=== PATIENT | male | born 2000 | race Caucasian/White ===

== ENCOUNTER 2022-10-23 12:37 | Emergency (ER) | payer BC, OTHER ==
--- OUTSIDE RECORDS SUMMARY | 2022-10-23 12:39 | XMS REPORT | Continuity of Care Document ---
:2000 Author Organization [facility] t Address [address] [place] [address] Care Team Providers Name Role Phone Ramon Aals Primary Care Physician Michael Werner Attending Clinician MICHAEL BROOKS Attending Clinician Unavailable Julisa Johnson MD Attending Clinician JULISA JOHNSON Attending Clinician Unavailable 1, [facility] Attending Clinician Unavailable Sarah Ríos MD Attending Clinician SARAH RÍOS Attending Clinician Unavailable Po, [facility] Main Attending Clinician Unavailable JULISA JOHNSON Admitting Clinician Unavailable Julisa Johnson MD Admitting Clinician Payers Payer Name Policy Type Policy Number Effective Date Expiration Date S ource Problems Condition Condition Condition Status Onset Resolution Last Treating Co mments Source Name Details Category Date Date Treatment Clinician Date Morbid Morbid Disease Active Univers obesity obesity 3-07 [place] mass index 00 [place] dical of of Branch 40.0-49.9 40.0-49.9 Internal Internal Disease Active Overview: Un vel derangemen derangemen 3-01 Formatt[place] ity of t of left t of left 00:00: [place] of this [place] knee knee 00 note Medical involving involving might be Br anch anterior anterior different horn of horn of from the medial medial original. meniscus meniscus Added automatic ally from request for surgery [id number] Wound Wound Disease Active Univers infection infection 05-30 ity of 00:00: [place] 00 Medical Branch Skin Skin Disease Active Univers eschar eschar 05-30 ity of 00:00: [place] 00 Medical [facility] Allergies, Adverse Reactions, Alerts Allergy Allergy Status Severity Reaction(s) Onset Inactive Treating Comm ents Source Name Type Date Date Clinician [place] Active Diarrhea C.diff Univ ers efrem ty to 05-30 ity of adverse 00:00: [place] reaction 00 Medical s Branch Social History Social Habit Start Date Stop Date Quantity Comments Source Exposure to Not sure [facility] SARS-CoV-2 [facility] (event) [place] Alcohol intake 2022-01-11 2022-01-11 Lifetime University of 00:00:00 00:00:00 non-drinker [facility] (finding) [place] Tobacco Comment 2021-12-25 2021-12-25 vape Universit y of 00:00:00 00:00:00 [facility] Tobacco use and 2021-12-22 2021-12-22 Current user Univers ity of exposure 00:00:00 00:00:00 [facility] Sex Assigned At [birth year] Universit y of 00:00:00 00:00:00 [facility] Smoking Status Start Date Stop Date Source Never smoker [facility] Medications Ordered Filled Start Stop Current Ordering Indication Dosage Frequency Signature Comments Components Source Medication Medication Date Date Medication? Clinician (SIG) Name Name aspirin 325 2021- No [id number] 325mg Take 1 Univers mg tablet 12-28 tablet by ity of 00:00: 04:59 mouth 2 [place] 00 :00 (two) Medical times Branch daily with meals for 28 days. aspirin 325 2021- No [id number] 325mg Take 1 Univers mg tablet 12-28-05 tablet by ity of 00:00: 04:59 mouth 2 [place] 00 :00 (two) Medical times Branch daily with meals for 28 days. diclofenac Yes 75mg Take 1 Unive rs 75 mg EC 11-26 tablet by ity of tablet 00:00: mouth 2 [place] 00 (two) [facility] daily with meals. diclofenac 2021- Yes 75mg Take 1 Unive rs 75 mg EC 2-03 tablet by ity of tablet 00:00: mouth 2 (two) [facility] daily with meals. Vital Signs Vital Name Observation Time Observation Value Comments Source Systolic blood 2022-01-11 18:45:00 143 mm[Hg] Univer sity of [facility] Diastolic blood 2022-01-11 18:45:00 93 mm[Hg] Unive rsity of [facility] Heart rate 2022-01-11 18:45:00 78 /min [facility] Body height 2022-01-11 18:40:00 188 cm [facility] Body weight 2022-01-11 18:40:00 148.326 kg [facility] BMI 2022-01-11 18:40:00 41.98 kg/m2 [facility] Procedures This patient has no known procedures. Encounters Start End Encounter Admission Attending Care Care Encounter Source Date/Time Date/Time Type Type Clinicians Facility Department ID 2022-01-11 2022-01-11 Office Satnam [facility] [id number] Univers 13:45:00 14:03:08 Visit [facility] [id number] it y of [place] [id number] Sagar as LEANDRA?BLEA [id number] [address] [facility] 2022-01-11 2022-01-11 Outpatient R SATNAM [facility] [id number] Univers 13:45:00 13:45:00 MICHAEL [facility] [place] 2022-01-11 2022-01-11 Letter Satnam WYJELENA [id number] Univers 00:00:00 00:00:00 (Out) [facility] [id number] it y of [place] [id number] Sagar as LEANDRA?BLEA [id number] Ct [address] MEDICAL OFFICE BUILDING 2022-01-11 2022-01-11 [facility] [id number] Univers 00:00:00 00:00:00 (Out) Michael Anne HEALTH [id number] it y of [place] [id number] Sagar as LEANDRA?BLEA [id number] Ct niki KATZ 198 [place] [facility] 2021-12-28 2021-12-28 Surgery [facility] [id number] Univers 14:45:00 16:17:00 Julisa MERIDA [id number] i ty of [place].2.[place].2.686 [place] [id number] [facility] 020 [place] 2021-12-28 2021-12-28 [facility] SOR [id number] Univers 11:51:00 16:01:00 JULISA elrita [facility] 2021-12-28 2021-12-28 Hospital [facility] [id number] Univers 11:51:00 16:01:00 Encounter Julisa Komal MAGNOLIA [id number] ity of [place] 4.2.[place].2.686 [place] [id number] [facility] 071 [place] 2021-12-25 2021-12-25 Enrollment Counselor 1, Adc Lab [facility] [id number] Univers 09:30:00 09:45:00 Visit Sarah Ríos MAGNOLIA [id number] ity of [facility] 4.2.7.2.686 [place] [facility] [id number] [facility] 353 [place] 2021-12-25 2021-12-25 [facility] [id number] Univers 09:30:00 09:30:00 SARAH alvarez [facility] 2021-12-23 2021-12-23 Telephone [facility] [id number] Univers 00:00:00 00:00:00 Julisa Sauceda HEALTH [id number] it y of [place] 4.2.7.2.686 Sagar as LEANDRA?BLEA [id number] Ct niki KATZ 198 [facility] 2021-12-22 2021-12-22 Enrollment Counselor Vitaly, Adc Lab Main [facility] [id number] Univers 15:30:00 15:45:00 Visit Julisa Johnson [id number] ity of [facility] [id number] [place] E[place] [phone] Me dical NAL 353 [facility] 2021-12-22 2021-12-22 [facility] [id number] Univers 15:30:00 15:30:00 JULISA [facility] [place] 2021-12-22 2021-12-22 Office [facility] [id number] Univers 14:45:00 15:00:00 Visit Michael S HEALTH [id number] it y of [place] 4.2.7.2.686 [place] as LEANDRA?BLEA [id number] Ct diczoey KATZ 198 [facility] 2021-12-22 2021-12-22 Outpatient [facility] [id number] Univers 14:45:00 14:45:00 [facility] 2021-12-22 2021-12-22 [facility] [id number] Univers 00:00:00 00:00:00 Surgery Julisa Sauceda HEALTH [id number] it y of [place] [id number] [place] as LEANDRA?BLEA [id number] Ct dical GIANNA 198 [facility] 2021-12-22 2021-12-22 Letter [facility] [id number] Univers 00:00:00 00:00:00 (Out) Michael S HEALTH 350.1.13.10 it y of [place] 4.2.7.2.686 Sagar as LEANDRA?BLEA [phone] Ct dical GIANNA 198 [facility] 2021-12-21 2021-12-21 Telephone [facility] [id number] Univers 00:00:00 00:00:00 Michael S HEALTH 350.1.13.10 it y of [place] 4.2.7.2.686 Sagar as LEANDRA?BLEA [id number] Me niki KATZ 198 [facility] 2021-12-18 2021-12-18 Telephone [facility] [id number] Univers 00:00:00 00:00:00 Michael S HEALTH 350.1.13.10 it y of [place] 4.2.7.2.686 Sagar as LEANDRA?BLEA [id number] Ct niki KATZ 198 [facility] 2021-11-26 2021-11-26 [place] [facility] [id number] Univers 00:00:00 00:00:00 Michael S HEALTH 350.1.13.10 it y of [place] 4.2.7.2.686 Sagar as LEANDRA?BLEA [phone] Ct niki KATZ [address] [place] [address] 2021-11-25 2021-11-25 [facility] [id number] Univers 00:00:00 00:00:00 Michael S HEALTH 350.1.13.10 it y of [place] [id number] Sagar as LEANDRA?BLEA [id number] Ct niki KATZ [address] [place] [address] 2021-11-19 2021-11-19 Outpatient [facility] [id number] [facility] 10:15:00 12:38:57 [facility] 2021-11-19 2021-11-19 Office [facility] [id number] Univers 10:15:00 10:30:00 Visit [facility] HEALTH [id number] it y of [place] [id number] [place]agar as LEANDRA?BLEA [id number] Ct niki KATZ [address] [place] [address] [facility] 2021-11-19 2021-11-19 Outpatient [facility] [id number] Univers 10:15:00 10:15:00 [facility] Results This patient has no known results.
--- NOTE | 2022-10-23 13:50 | RAD REPORT ---
EXAM DESCRIPTION: RAD - Chest Single View - 10/23/2022 1:45 pm CLINICAL HISTORY: CHEST PAIN COMPARISON: No comparisons FINDINGS: Lines: None. Lungs: No evidence of edema or pneumonia. Pleural: No significant pleural effusions or pneumothorax. Cardiac: The heart size is within normal limits. Mediastinum: Within normal limits. Bones: No acute fractures. Other: None IMPRESSION: No acute cardiopulmonary disease.
--- NOTE | 2022-10-23 14:07 | RAD REPORT ---
EXAM DESCRIPTION: CT - Head Brain Wo Cont - 10/23/2022 2:01 pm CLINICAL HISTORY: "seizure" COMPARISON: No comparisons TECHNIQUE: All CT scans are performed using dose optimization technique as appropriate and may inclu de automated exposure control or mA/KV adjustment according to patient size. FINDINGS: No intracranial hemorrhage, hydrocephalus or extra-axial fluid collection.No areas of brai n edema or evidence of midline shift. The paranasal sinuses and mastoids are clear. The calvarium is intact. IMPRESSION: No acute intracranial abnormality.
[2022-10-23 14:26] LABS: Absolute Lymphocytes (CBC) 1.7 K/uL (0.7-4.9); Hematocrit 44.8 % (39.6-49.0); Lymphocytes % 15.8 % (15.3-44.8); MCV 84.2 fL (80-100); RBC Red Blood Cell Count 5.31 M/uL (4.33-5.43)
[2022-10-23 14:34] LABS: Protime INR 1.05
[2022-10-23 14:44] LABS: Albumin 3.8 g/dL (3.4-5.0); Bilirubin Direct 0.1 mg/dL (0-0.2); Bilirubin Total 0.4 mg/dL (0.2-1.0); Magnesium 2.1 mg/dL (1.6-2.4); Potassium 3.9 mmol/L (3.5-5.1); Protein, Total 7.4 g/dL (6.4-8.2); Troponin High Sensitivity 4.6 pg/mL (<58.9)
[2022-10-23 15:44] LABS: Urine Blood Negative (Negative); Urine Glucose Negative (Negative); Urine Protein Negative (Negative); Urine Specific Gravity 1.015 (1.005-1.030)
[2022-10-23 16:26] LABS: Barbiturates NEGATIVE (NEGATIVE); Benzodiazepines NEGATIVE (NEGATIVE); Cocaine NEGATIVE (NEGATIVE); METHAMPHETAM NEGATIVE (NEGATIVE); Methadone NEGATIVE (NEGATIVE); Opiates NEGATIVE (NEGATIVE); Phencyclidine NEGATIVE (NEGATIVE); THC Cannibis POSITIVE (NEGATIVE)
--- NOTE | 2022-10-23 16:28 | EDPHYS ---
Physician Documentation [facility] Name: Brando Enrique Age: 22 yrs Sex: Male : 2000 Arrival Date: 10/23/2022 Time: 12:41 Bed 15 Private MD: ED Physician Misha Hansen HPI: 10/23 14:02 This 22 yrs old Male presents to ER via Ambulatory with complaints of Chest Pain. kb 14:02 The patient or guardian reports chest pain that is located primarily in the chest kb diffusely. The pain does not radiate. Associated signs and symptoms: The patient has no apparent associated signs or symptoms. The chest pain is described as aching. Duration: The patient or guardian reports a single episode. Modifying factors: The symptoms are alleviated by nothing. the symptoms are aggravated by nothing. Severity of pain: At its worst the pain was moderate in the emergency department the pain is unchanged. The patient has experienced similar episodes in the past. The patient has not recently seen a physician. Pt reports he has been having seizures for about 6 months and sometimes gets chest pain with them. This morning he had a seizure at 0200 and has had chest pain since then. Mother states no one has witness these seizures, but she made him an appt for evaluation for Tuesday. . Historical: - Allergies: 13:00 Clindamycin; kb3 - Home Meds: 13:00 None [Active]; kb3 - PMHx: 13:00 None; kb3 - PSHx: 13:00 Arthroplasty of knee; kb3 - Immunization history:: Adult Immunizations up to date, Client reports having NOT received the Covid vaccine. Last tetanus immunization: unknown. - Social history:: Smoking status: Reported history of juuling and/or vaping. Patient uses street drugs, marijuana. ROS: 13:41 Constitutional: Negative for fever, chills, and weight loss. kb 13:41 Cardiovascular: Positive for chest pain, Negative for edema, orthopnea, palpitations, paroxysmal nocturnal dyspnea. 13:41 Neuro: Positive for seizure activity. 13:41 All other systems are negative. Exam: 13:41 Constitutional: This is a well developed, well nourished patient who is awake, alert, kb and in no acute distress. Head/Face: Normocephalic, atraumatic. ENT: Moist Mucous membranes Cardiovascular: Regular rate and rhythm with a normal S1 and S2. No gallops, murmurs, or rubs. No pulse deficits. Respiratory: Respirations even and unlabored. No increased work of breathing. Talking in full sentences Abdomen/GI: Soft, non-tender. No distention Skin: Warm, dry with normal turgor. Normal color. MS/ Extremity: Pulses equal, no cyanosis. Neurovascular intact. Full, normal range of motion. Neuro: Awake and alert, GCS 15, oriented to person, place, time, and situation. Moves all extremities. Normal gait. Psych: Awake, alert, with orientation to person, place and time. Behavior, mood, and affect are within normal limits. 13:41 ECG was reviewed by the Attending Physician. Vital Signs: 12:52 BP 125 / 92; Pulse 77; Resp 20; Temp 98; Pulse Ox 99% ; Weight 127.01 kg; Height 6 ft. kb3 2 in. (187.96 cm); Pain 6/10; 13:30 BP 124 / 71; Pulse 83; Resp 18; Pulse Ox 96% on R/A; ll1 13:45 BP 99 / 65; Pulse 69; Resp 18; Pulse Ox 97% on R/A; ll1 15:16 BP 116 / 76; Pulse 74; ll1 15:39 BP 132 / 90; Pulse 71; Resp 14; Pulse Ox 98% on R/A; ll1 16:20 BP 117 / 73; Pulse 67; Resp 15; Pulse Ox 99% ; ll1 12:52 Body Mass Index 35.95 (127.01 kg, 187.96 cm) kb3 MDM: 12:43 Patient medically screened. kb 13:41 Data reviewed: vital signs, nurses notes. Data interpreted: Pulse oximetry: on room air kb is 96 %. Interpretation: normal. 16:09 Counseling: I had a detailed discussion with the patient and/or guardian regarding: the kb historical points, exam findings, and any diagnostic results supporting the discharge/admit diagnosis, lab results, radiology results, the need for outpatient follow up, a family practitioner, a neurologist, to return to the emergency department if symptoms worsen or persist or if there are any questions or concerns that arise at home. 10/23 13:12 Order name: Basic Metabolic Panel; Complete Time: 14:56 kb 10/23 13:12 Order name: CBC with Diff; Complete Time: 14:40 kb 10/23 13:12 Order name: Hepatic Function; Complete Time: 14:56 kb 10/23 13:12 Order name: Magnesium; Complete Time: 14:56 kb 10/23 13:12 Order name: Protime (+inr); Complete Time: 14:40 kb 10/23 13:12 Order name: Ptt, Activated; Complete Time: 14:40 kb 10/23 13:12 Order name: Troponin High Sensitivity; Complete Time: 14:56 kb 10/23 13:12 Order name: UDS; Complete Time: 16:27 kb 10/23 13:12 Order name: CT Head Brain wo Cont; Complete Time: 14:08 kb 10/23 13:12 Order name: Chest Single View XRAY; Complete Time: 13:59 kb 10/23 13:12 Order name: EKG; Complete Time: 13:14 kb 10/23 13:12 Order name: Cardiac monitoring; Complete Time: 13:13 kb 10/23 13:12 Order name: EKG - Nurse/Tech; Complete Time: 13:13 kb 10/23 15:44 Order name: Urine Dipstick-Ancillary; Complete Time: 15:48 EDMS 10/23 13:12 Order name: IV Saline Lock; Complete Time: 13:28 kb 10/23 13:12 Order name: Labs collected and sent; Complete Time: 13:28 kb 10/23 13:12 Order name: NPO; Complete Time: 13:28 kb 10/23 13:12 Order name: O2 Per Protocol; Complete Time: 13:13 kb 10/23 13:12 Order name: O2 Sat Monitoring; Complete Time: 13:13 kb 10/23 13:12 Order name: Urine Dipstick-Ancillary (obtain specimen); Complete Time: 16:19 kb 10/23 15:24 Order name: Urine Dipstick-Ancillary (obtain specimen); Complete Time: 16:19 kb EC:41 Rate is 84 beats/min. Rhythm is regular. QRS Orick is Normal. ME interval is normal at kb 166 msec. QRS interval is normal at 90 msec. QT interval is normal at 413 msec. Administered Medications: No medications were administered Disposition: 17:54 Co-signature as Attending Physician, Misha Hansen MD. rn Disposition Summary: 10/23/22 16:27 Discharge Ordered Location: Home kb Condition: Stable kb Diagnosis - Chest pain, unspecified kb Followup: kb - With: Emergency Department - When: As needed - Reason: Worsening of condition Followup: kb - With: Private Physician - When: 2 - 3 days - Reason: Recheck today's complaints, Continuance of care, Re-evaluation by your physician Discharge Instructions: - Discharge Summary Sheet kb - Nonspecific Chest Pain, Adult, Xate-[id number]-Ujdh kb Forms: - Medication Reconciliation Form kb - Thank You Letter kb - Antibiotic Education kb - Prescription Opioid Use kb Signatures: Dispatcher [employer] EDMS Anju Bernal, SPECIMEN COLLECTOR-C SPECIMEN COLLECTOR-Ckb Misha Hansen MD MD rn Bradberry, Kelly, RN RN kb3 Corrections: (The following items were deleted from the chart) 13:01 13:00 Allergies: No Known Allergies; kb3 kb3
--- NOTE | 2022-10-23 16:28 | ER ---
Nurse's Notes [facility] Name: Brando Enrique Age: 22 yrs Sex: Male : 2000 Arrival Date: 10/23/2022 Time: 12:41 Bed 15 Private MD: Diagnosis: Chest pain, unspecified Presentation: 10/23 12:52 Chief complaint: Patient states: self-diagnosed with absent seizures for approximately kb3 6 months. States that for the last week, he has experienced mid-sternal CP just prior to the seizure activity. Pt reports the seizure activity as "just going out" and the chest pain as pressure. Denies N/V/fainting/light-headed/dizzy/incontinence. Coronavirus screen: Vaccine status: Patient reports being unvaccinated. Client denies travel out of the [place] in the last 14 days. Ebola Screen: Patient negative for fever greater than or equal to 101.5 degrees Fahrenheit, and additional compatible Ebola Virus Disease symptoms Patient denies exposure to infectious person. Patient denies travel to an Ebola-affected area in the 21 days before illness onset. Initial Sepsis Screen: Does the patient meet any 2 criteria? No. Patient's initial sepsis screen is negative. Does the patient have a suspected source of infection? No. Patient's initial sepsis screen is negative. Risk Assessment: Do you want to hurt yourself or someone else? Patient reports no desire to harm self or others. Onset of symptoms was October 07, 2022. 12:52 Method Of Arrival: Ambulatory kb3 12:52 Acuity: RADHA 3 kb3 Triage Assessment: 13:00 General: Appears in no apparent distress. Behavior is calm, cooperative. Pain: kb3 Complains of pain in mid-sternal area Pain does not radiate. Pain currently is 6 out of 10 on a pain scale. Quality of pain is described as pressure. Cardiovascular: Reports chest pain, Rhythm is sinus rhythm. Historical: - Allergies: 13:00 Clindamycin; kb3 - Home Meds: 13:00 None [Active]; kb3 - PMHx: 13:00 None; kb3 - PSHx: 13:00 Arthroplasty of knee; kb3 - Immunization history:: Adult Immunizations up to date, Client reports having NOT received the Covid vaccine. Last tetanus immunization: unknown. - Social history:: Smoking status: Reported history of juuling and/or vaping. Patient uses street drugs, marijuana. Screenin:30 [facility] ED Fall Risk Assessment (Adult) Score/Fall Risk Level 0 - 2 = Low Risk ll1 Oriented to surroundings, Maintained a safe environment, Educated pt \\T\\ family on fall prevention, incl call for assistance when getting out of bed, Hourly rounding (assess needs \\T\\ fall precautionary measures) done. Abuse screen: Denies threats or abuse. Nutritional screening: No deficits noted. Tuberculosis screening: No symptoms or risk factors identified. Assessment: 13:30 Reassessment: No changes from previously documented assessment. Patient and/or family ll1 updated on plan of care and expected duration. Pain level reassessed. Patient is alert, oriented x 3, equal unlabored respirations, skin warm/dry/pink. 13:47 Reassessment: No changes from previously documented assessment. to CT via wheelchair. ll1 15:17 Reassessment: No changes from previously documented assessment. Patient and/or family ll1 updated on plan of care and expected duration. Pain level reassessed. Patient is alert, oriented x 3, equal unlabored respirations, skin warm/dry/pink. 15:39 Reassessment: No changes from previously documented assessment. Patient and/or family ll1 updated on plan of care and expected duration. Pain level reassessed. Patient is alert, oriented x 3, equal unlabored respirations, skin warm/dry/pink. 16:19 Reassessment: No changes from previously documented assessment. Patient and/or family ll1 updated on plan of care and expected duration. Pain level reassessed. Patient is alert, oriented x 3, equal unlabored respirations, skin warm/dry/pink. 16:45 Reassessment: No changes from previously documented assessment. Patient and/or family ll1 updated on plan of care and expected duration. Pain level reassessed. Patient is alert, oriented x 3, equal unlabored respirations, skin warm/dry/pink. 17:24 Pain: Pain began 6+ months. ll1 Vital Signs: 12:52 BP 125 / 92; Pulse 77; Resp 20; Temp 98; Pulse Ox 99% ; Weight 127.01 kg; Height 6 ft. kb3 2 in. (187.96 cm); Pain 6/10; 13:30 BP 124 / 71; Pulse 83; Resp 18; Pulse Ox 96% on R/A; ll1 13:45 BP 99 / 65; Pulse 69; Resp 18; Pulse Ox 97% on R/A; ll1 15:16 BP 116 / 76; Pulse 74; ll1 15:39 BP 132 / 90; Pulse 71; Resp 14; Pulse Ox 98% on R/A; ll1 16:20 BP 117 / 73; Pulse 67; Resp 15; Pulse Ox 99% ; ll1 12:52 Body Mass Index 35.95 (127.01 kg, 187.96 cm) kb3 ED Course: 12:41 Patient arrived in ED. rg4 12:41 Kristine Andino, RN is Primary Nurse. eh3 12:43 Anju Bernal [facility]NP-C [facility]. kb 12:43 Misha Hansen MD is Attending Physician. kb 12:46 Mackenzie Alex, CHANTE is Primary Nurse. ll1 12:46 Arm band placed on Patient placed in an exam room, on a stretcher. ll1 13:00 Triage completed. kb3 13:30 Patient has correct armband on for positive identification. Bed in low position. Call ll1 light in reach. Client placed on continuous cardiac and pulse oximetry monitoring. NIBP monitoring applied. monitor car operator on. 13:30 No provider procedures requiring assistance completed. Patient maintains SpO2 ll1 saturation greater than 95% on room air. 13:46 Chest Single View XRAY In Process Unspecified. EDMS 14:00 Inserted saline lock: 22 gauge in right antecubital area, using aseptic technique. ll1 Blood collected. 14:03 CT Head Brain wo Cont In Process Unspecified. EDMS 16:45 IV discontinued, intact, bleeding controlled, No redness/swelling at site. Pressure ll1 dressing applied. Administered Medications: No medications were administered Medication: 13:31 VIS not applicable for this client. ll1 Outcome: 16:27 Discharge ordered by . kb 16:45 Patient left the ED. zm 16:45 Discharged to home ambulatory. ll1 16:45 Condition: stable 16:45 Discharge instructions given to patient, family, Instructed on discharge instructions, follow up and referral plans. Demonstrated understanding of instructions, follow-up care. Signatures: Dispatcher [employer] EDMS Anju Bernal FNP-C RESISTANCE BRAZER-Zenaida Yuan rg4 Mackenzie Alex, RN RN ll1 Kristine Andino RN RN eh3 Rebecca Valle Kelly RN RN kb3 Corrections: (The following items were deleted from the chart) 13:01 13:00 Allergies: No Known Allergies; kb3 kb3
[2022-10-23 16:52] VITALS: TEMP 98
[2022-10-23 16:58] VITALS: BP 117/73; O2SAT 99
--- NOTE | 2022-10-26 08:37 | EKG ---
Test Date: 2022-10-23 Test Time: 12:50:58 [employer]crete Products Dispatcher: SUDHA MEASUREMENT RESULTS: Intervals: Rate: 84 MS: 164 QRSD: 90 QT: 350 QTc: 413 [place]: P: 36 MS: 164 QRS: 48 T: 20 INTERPRETIVE STATEMENTS: Normal sinus rhythm ST elevation, consider lateral injury or acute infarct ACUTE CT / STEMI Abnormal ECG Compared to ECG 06/16/2012 14:41:17 ST (T wave) deviation now present Myocardial infarct finding now present Electronically Signed On 10-26-22 08:32:52 INDUSTRIAL MANUFACTURING TECHNICIAN by Chris Solis
--- NOTE | 2022-10-27 16:10 | EKG ---
Test Date: 2022-10-23 Test Time: 13:15:57 Manager Landscape: SUDHA MEASUREMENT RESULTS: Intervals: Rate: 84 MI: 166 QRSD: 90 QT: 350 QTc: 413 [place]: P: 45 MI: 166 QRS: 30 T: 19 INTERPRETIVE STATEMENTS: Normal sinus rhythm Early repolarization Normal ECG Compared to ECG 10/23/2022 12:50:58 Early repolarization now present ST (T wave) deviation no longer present Myocardial infarct finding no longer present Electronically Signed On 10-27-22 16:06:53 JOB SETTER by Ziggy Avelar
== END 2022-10-23 16:45 | disposition home or self-care (01) ==
LOC: ER 12:37
DX: R07.89 Other chest pain (principal); Z88.1 Allergy status to other antibiotic agents
CPT/HCPCS: 36415; 70450; 71045; 80048; 80076; 80307; 81003; 83735; 84484; 85025; 85610; 85730; 93005; 99285